=== PATIENT | female | born 1995 | race Two or more races ===

== ENCOUNTER 2023-01-24 22:45 | Emergency (ER) | payer BC ==
[~2023-01-24] VITALS: Ht 162.6 cm; Wt 85.8 kg
[2023-01-25 00:09] LABS: CHLORIDE 105 mEq/L (98-107)
[2023-01-25 00:14] LABS: BASOPHILS % 0.2 % (0.0-2.0); EOSINOPHILS % 0.4 % (0.0-5.0); HEMATOCRIT. 39.5 % (36.0-48.0); HEMOGLOBIN. 13.4 g/dL (12.0-16.0); LYMPHOCYTES % 12.9 % (20.0-50.0); MEAN CORPUSCULAR HEMOGLOBIN 28.7 pg (28.0-32.0); MEAN CORPUSCULAR VOLUME 84.3 fL (81.0-99.0); MEAN PLATELET VOLUME 7.9 fl (7.4-10.4); MONOCYTES % 3.3 % (2.0-8.0); NEUTROPHILS % 83.2 % (40.0-76.0); PLATELET 307 x1000/uL (130-400); RED BLOOD CELL COUNT 4.69 mill/uL (4.2-5.4); RED CELL DISTRIBUTION WIDTH 13.3 % (11.6-14.6)
[2023-01-25] MEDS ORDERED: KETOROLAC 60MG/2ML VIAL IM ONE (00:15)
[2023-01-25] MEDS ORDERED: ONDANSETRON 4MG ODT PO ONE (00:15)
[2023-01-25 00:26] LABS: CLARITY URINE CLEAR (CLEAR); COLOR URINE YELLOW (YELLOW); KETONES URINE TRACE (NEGATIVE); LEUKOCYTE ESTERASE URINE NEGATIVE (NEGATIVE); NITRITE URINE NEGATIVE (NEGATIVE); OCCULT BLOOD URINE 2+ (NEGATIVE); PROTEIN URINE NEGATIVE (NEGATIVE); SPECIFIC GRAVITY URINE 1.028 (1.005-1.030); UROBILINOGEN URINE 0.2 E.U./dL (0.2-1.0)
[2023-01-25] MEDS ORDERED: METRONIDAZOLE 500 MG PREMIX 100 ML IV ONE (01:00)
[2023-01-25] MEDS ORDERED: SODIUM CHLORIDE 0.9% 1,000 ML IV ONE (01:00)
[2023-01-25] MEDS ORDERED: CEFTRIAXONE 1GM PREMIX 50 ML IV ONE (01:00)
[2023-01-25] MEDS ORDERED: ONDANSETRON HCL 4MG/2ML INJ IV ONE (01:30)
[2023-01-25] MEDS ORDERED: KETOROLAC 30MG/ML VIAL IV ONE (01:30)
[2023-01-25 05:57] VITALS: BP 99/46
== END 2023-01-25 06:21 | disposition short-term general hospital (02) ==
LOC: ER 22:56
DX: K81.0 Acute cholecystitis (principal); R11.2 Nausea with vomiting, unspecified; Z20.822 Contact with and (suspected) exposure to COVID-19
CPT/HCPCS: 36415; 76705; 80053; 81003; 81025; 83690; 85025; 87426; 96365; 96367; 96375; 99285; C9803; J0696; J1885; J2405; J3490; J7030; Z7610

== ENCOUNTER 2023-02-06 15:15 | Emergency (ER) | payer BC ==
[~2023-02-06] VITALS: Ht 154.9 cm; Wt 81.8 kg
[2023-02-06 16:01] VITALS: BP 123/81
[2023-02-06 16:36] LABS: BASOPHILS % 0.6 % (0.0-2.0); EOSINOPHILS % 1.8 % (0.0-5.0); HEMATOCRIT. 42.1 % (36.0-48.0); HEMOGLOBIN. 14.2 g/dL (12.0-16.0); LYMPHOCYTES % 29.5 % (20.0-50.0); MEAN CORPUSCULAR HEMOGLOBIN 28.6 pg (28.0-32.0); MEAN CORPUSCULAR VOLUME 84.6 fL (81.0-99.0); MEAN PLATELET VOLUME 8.2 fl (7.4-10.4); MONOCYTES % 4.9 % (2.0-8.0); NEUTROPHILS % 63.2 % (40.0-76.0); PLATELET 371 x1000/uL (130-400); RED BLOOD CELL COUNT 4.97 mill/uL (4.2-5.4); RED CELL DISTRIBUTION WIDTH 13.4 % (11.6-14.6)
[2023-02-06 16:43] LABS: CHLORIDE 104 mEq/L (98-107)
[2023-02-06 16:59] LABS: HCG SCREEN NEGATIVE
[2023-02-06] MEDS ORDERED: IBUP-2029 MT (18:28)
== END 2023-02-06 18:36 | disposition home or self-care (01) ==
LOC: ER 15:15
DX: R10.11 Right upper quadrant pain (principal); Z87.19 Personal history of other diseases of the digestive system
CPT/HCPCS: 36415; 74176; 80053; 81003; 84703; 85025; 99284